=== PATIENT | male | born 1985 | race Caucasian/White ===

== ENCOUNTER → 2018-09-11 | Outpatient (CLI) | payer OTHER, SELFPAY ==
[2018-09-11 08:36] LABS: Absolute Lymphocyte Count 1.17 X10^3/uL (0.83-4.51); Absolute Neutrophil Count 4.1 X10^3/uL (2.0-7.7); Basophil# 0.01 X10^3/uL; Basophil% 0.2 % (0-1); Eosinophil# 0.04 X10^3/uL; Eosinophils% 0.6 % (0-5); Hemoglobin 14.9 g/dL (13.0-16.5); Lymphocyte # 1.17 X10^3/ul (4.0); Lymphocyte % 18.1 % (19-41); Mean Corp Hgb Conc 36.3 g/dL (32-36); Mean Corpuscular Hgb 31.3 pg (27.0-32.0); Mean Corpuscular Volume 86.1 fL (80-94); Mean Platelet Vol. 10.8 fl (6.2-12.0); Monocyte# 1.19 X10^3/uL; Monocyte% 18.4 % (0-10); NRBC Flagged by Analyzer 0 % (0-5); Neutrophil # 4.05 X10^3/uL (2.7-7.7); Neutrophil % 62.4 % (47-70); Platelet Count 122 K/mm3 (150-450); RBC Distribution Width CV 12.1 % (11.6-14.6); RBC Distribution Width SD 38.5 fl (35.1-43.9); Red Blood Count 4.76 M/mm3 (4.6-6.2); White Blood Count 6.5 K/mm3 (4.4-11.0)
[2018-09-15 10:05] LABS: Immunoglobulin E 98 IU/mL (6-495)
[2018-09-15 12:07] LABS: Alternaria tenuis <0.10 kU/L (Class 0); Ash, White 0.56 kU/L (Class II); Aspergillus fumigatus <0.10 kU/L (Class 0); Bermuda Grass 0.38 kU/L (Class I); Birch 0.31 kU/L (Class 0/I); Black Walnut 0.74 kU/L (Class II); Cat Hair / Dander,Stand 1.41 kU/L (Class III); Cladosporium herbarum <0.10 kU/L (Class 0); Cockroach, American 2.74 kU/L (Class III); Cottonwood 0.24 kU/L (Class 0/I); D farinae Mite 2.76 kU/L (Class III); D pteronyssinus 3.06 kU/L (Class III); Dog Epithelia 0.74 kU/L (Class II); Elm, American White 0.24 kU/L (Class 0/I); Immunoglobulin E 121 IU/mL (6-495); Maple/Box Elder 1.78 kU/L (Class III); Mulberry, White <0.10 kU/L (Class 0); Oak, White 0.41 kU/L (Class I); Penicillium Notatum <0.10 kU/L (Class 0); Pigweed, Rough 0.21 kU/L (Class 0/I); Ragweed, Short/Common 2.19 kU/L (Class III); Russian Thistle 0.11 kU/L (Class 0/I); Sycamore, American 0.24 kU/L (Class 0/I); Timothy Grass 0.24 kU/L (Class 0/I)
[2018-09-16 07:41] LABS: Mouse Urine <0.10 kU/L (Class 0)
== END | disposition home or self-care (01) ==
PROVIDERS: Family Provider Family Medicine; PCP Family Medicine; Referring Provider Internal Medicine Critical Care Medicine; Visit Provider Internal Medicine Critical Care Medicine
DX: J30.9 Allergic rhinitis, unspecified (principal); R06.02 Shortness of breath
CPT/HCPCS: 36415; 82785; 85025; 86003

== ENCOUNTER → 2018-10-01 | Outpatient (CLI) | payer OTHER, SELFPAY ==
--- NOTE | 2018-10-01 12:20 | PFT ---
INTRODUCTION: The patient is a 33-year-old male that presents for pulmonary function studies secondary to a diagnosis of shortness of breath. Respiratory therapy reports good patient effort. Bronchodilators were used during testing. INTERPRETATION: Forced expiration spirometry demonstrates no evidence of a large airways obstructive ventilatory defect. There was no significant response to aerosolized bronchodilators. Spirograms plateau normally. Body plethysmography was performed and reveals lung volumes to be within normal limits. Diffusing capacity by single breath CO is within normal limits. IMPRESSION: Normal pulmonary function studies.
== END | disposition home or self-care (01) ==
LOC: PSN 07:56
PROVIDERS: Family Provider Family Medicine; PCP Family Medicine; Referring Provider Internal Medicine Critical Care Medicine; Visit Provider Internal Medicine Critical Care Medicine
DX: R06.02 Shortness of breath (principal)
CPT/HCPCS: 94060; 94726; 94729

== ENCOUNTER → 2018-10-30 | Outpatient (CLI) | payer OTHER, SELFPAY ==
[2018-10-15 11:12] VITALS: BMI 25.7
--- NOTE | 2018-10-30 17:33 | BRONCHALL ---
Bronchoprovocation Challenge - Bronchoprovocation Challenge Bronchoprovocation Challenge: INTRODUCTION: The patient is a 33-year-old male that presents for a methacholine challenge secondary to a diagnosis of shortness of breath. Respiratory therapy reports good patient effort and reproducible results. INTERPRETATION: Initial spirometry did not show any large airways obstructive ventilatory defect with preserved airflow throughout. The patient was then given progressively increasing doses of methacholine in a standardized fashion. At the highest level, the patient did have a 32% decrease in FEV1, indicating a positive test. The patient's PD 20 FEV1 was noted to be 1.85. The patient did have partial postbronchodilator recovery. IMPRESSION: Positive methacholine challenge in a pattern consistent with mild bronchial hyperresponsiveness.
== END | disposition home or self-care (01) ==
LOC: PSN 06:56
PROVIDERS: Family Provider Family Medicine; PCP Family Medicine; Referring Provider Internal Medicine Critical Care Medicine; Visit Provider Internal Medicine Critical Care Medicine
DX: R06.02 Shortness of breath (principal)
CPT/HCPCS: 95070; J3490; J7674

== ENCOUNTER 2021-03-24 12:51 | Outpatient (CLI) | payer OTHER, SELFPAY ==
[2021-03-24 13:15] VITALS: BP 132/77; PULSE 58; RESP 16; TEMP 36.7; O2SAT 100; BMI 25.8
--- NOTE | 2021-03-24 13:15 | RAD_ITS ---
PROCEDURE: Fluoroscopic guided Lumbar Puncture. DATE: 03/24/2021. CLINICAL INDICATION: Benign intracranial hypertension. PHYSICIAN: Jovanny Washburn M.D. MEDICATIONS: 1% lidocaine administered subcutaneously for local anesthesia. ACCESS SITE: Lower posterior back. NEEDLE: 22-gauge spinal needle. SPECIMEN: Approximately 19 mL clear]CSF fluid. FLUOROSCOPY TIME (if supplied): (0:20) minutes/seconds. No images were obtained. COMPLICATIONS: None immediate. The risks, benefits, and alternatives to the procedure were explained to the patient. The specific risks of bleeding, infection, and neurovascular injury were detailed and accepted. Witnessed informed consent was obtained. The patient was placed on the fluoroscopic table in the prone position. The level for needle entry was determined and marked. The overlying skin was cleaned and prepped in the usual sterile fashion. 2% lidocaine was administered subcutaneously for local anesthesia. Under fluoroscopic guidance a 22-gauge spinal needle was advanced. The thecal sac was entered at the L3- L4 vertebral level. The inner stylet was removed. The opening pressure was 4 mm. The closing pressure was 4 mm. There was spontaneous flow of clear CSF fluid. The patient was placed in a reversed Trendelenburg position. Approximately 19 mL of cerebrospinal fluid was collected using gravity. The specimen was collected and submitted to the laboratory for further evaluation. The needle was withdrawn,. Hemostasis was achieved and a sterile dressing placed. The patient tolerated the procedure well without any immediate complications. The patient was placed supine with head elevated and returned to the floor in stable condition. RAD/Dx Lumbar Puncture w/IMG Guide IMPRESSION: Successful fluoroscopic-guided lumbar puncture. Electronically Signed: Jovanny Washburn MD at 14:12 EST ,
[2021-03-24] MEDS: Lidocaine 2% (5ml sdv) 5 ML VIAL.MPF INFILT (13:30)
--- NOTE | 2021-03-24 13:59 | CYSPIN_PTH ---
PATIENT: RENETTA AGGARWAL LOC: [facility] U#:[id number] AGE/SX: 35/M ROOM: RE03/24/[address]: Dr. Keny Ayala MD : 1985 BED: DIS: 03/24/2021 SPEC #: [id number] RECD: 03/25/21 10:25 STATUS: DOUG LEAHY #: [id number] JW: 03/24/21 13:[address]: Keny Ayala DEPT: CYTOLOGY RECD BY: Mary Frances ENTERED: 03/25/21 10:26 SP TYPE: CYSPIN FL OT DR: STACEY Landeros Tissues: Cerebrospinal Fluid Procedures: Pap Stain (control) Special Stain Group II Cytospin Fluid HEADER OPERATION: Lumbar puncture PRE-OP DIAGNOSIS: Benign intracranial hypertension TISSUE SUBMITTED: Cerebrospinal fluid DIAGNOSIS CYTOLOGY Cerebrospinal fluid (cytospin): Paucicellular specimen, negative for malignant cells. SJ:duane 03/25/2021 CYTOLOGY STUDY Slides are reviewed. CYTOLOGY GROSS Received is 2 ml of clear pink-tinged fluid labeled with the patient's name and and designated per the requisition as CSF. Submitted for cytology preparation. / duane 03/25/2021 TC:4 CPT: 49110
[2021-03-24 14:13] LABS: Cytology, Body Fluid / CSF SEE PATHOLOGY REPORT
[2021-03-24 14:33] LABS: Body Fluid Mononuclear WBC # 0.004 10^3/uL; Total Cell Count CSF 0.004 10^3/uL; White Count, CSF 0.004 10^3/uL (0.000-0.005)
[2021-03-24 14:46] VITALS: BP 123/66; PULSE 52; RESP 14; O2SAT 100
[2021-03-24 15:13] LABS: Glucose Spinal Fluid 53 mg/dL (40-75)
[2021-03-24 15:26] LABS: Appearance CSF (character) CLEAR (Clear); Auto B Fluid Analyzer BKGD Ct COUNTS W/IN LIMITS (W/IN LIMITS); CSF Color COLORLESS (Colorless); RBC Count, Spinal Fluid 0 /mm-3 (None seen); Tested Tube # 4
[2021-03-24 15:27] LABS: Body Fluid QC Type(s) BF1Q,BF2Q
[2021-03-25 13:11] LABS: Pathologist Review Reviewed
[2021-03-29 17:07] LABS: CSF Albumin 24 mg/dL (10-45); CSF IgG 4.3 mg/dL (0.0-10.3); CSF IgG Index 0.9 (0.0-0.7); IgG Serum 990 mg/dL (603-1613); IgG Synthesis Rate, CSF 6.7 mg/day (-9.9 TO +3.3); IgG/Alb Ratio, CSF 0.18 (0.00-0.25); Serum Albumin 4.8 g/dL (4.0-5.0)
[2021-03-29 18:02] LABS: CSF:Serum Albumin Index 5 (0-8); VDRL Cerebrospinal Fluid Non Reactive (Non Rea:<1:1)
== END 2021-03-24 23:59 | disposition home or self-care (01) ==
PROVIDERS: PCP Physician Assistant; Referring Provider Psychiatry & Neurology Neurology; Visit Provider Psychiatry & Neurology Neurology
DX: G35 Multiple sclerosis (principal); G93.2 Benign intracranial hypertension
CPT/HCPCS: 36415; 62328; 82040; 82042; 82784; 82945; 84157; 86592; 87070; 87205; 88108; 88313; 89050; 89051

== ENCOUNTER 2021-03-26 14:05 | Emergency (ER) | payer OTHER, SELFPAY ==
[2021-03-26 14:07] VITALS: BP 124/97; PULSE 67; RESP 15; TEMP 36.4; O2SAT 10; BMI 26.2
--- NOTE | 2021-03-26 15:36 | EX.ED.VIS.HA ---
HPI History of Present Illness Chief Complaint: Headache Narrative Narrative: 35-year-old male presenting with post LP headache. He states he had a LP done on Monday. This is because he had high intracranial pressures and he is not sure how much fluid they took out of with his lumbar puncture but states he had a headache in the front and the back of his head when he stands since then. He states when he lays down he is fine. He states he was told to come to the ER because radiology did not have anybody available to do a blood patch. Patient has no other complaints. [facility] Medical History Allergic rhinitis Difficulty breathing Frequent headaches Hypertrophy of nasal turbinates Home Medications multivitamin,[id number] 1 tab PO DAILY 09/10/18 [History Last Taken Unknown] ibuprofen 200 - 800 mg PO DAILY PRN 03/24/21 [History Last Taken 03/23/21] levocetirizine [Xyzal] 5 mg PO DAILY 03/24/21 [History Last Taken Unknown] Allergy/AdvReac Type Severity Reaction Status Date / Time No Known Allergies Allergy Verified 03/26/21 14:07 Family History Uncle Cancer Brain tumor Other Thyroid disorder Social History Smoking Status: Never smoker Electronic Cigarette Use: not used second hand exposure: No alcohol intake: current alcohol intake frequency: 0-2 drinks per day Alcohol type: hard liquor substance use type: does not use ROS ROS ED Constitutional Constitutional ED: Denies chills or fever(s) Eyes Eyes: Denies blurry vision or diplopia ENT ENT ED: Denies rhinorrhea or sore throat Cardiovascular Cardiovascular: Denies chest pain or palpitations Respiratory/Chest Respiratory/Chest: Denies cough, dyspnea or sputum Gastrointestinal Gastrointestinal: Denies abdominal pain or nausea Genitourinary Genitourinary ED: Denies dysuria or hematuria Musculoskeletal Musculoskeletal: Denies arthralgias or myalgias Integumentary Denies Abrasions or rash Neurologic Neurologic: Reports headache(s); Denies paresthesias or weakness Psychiatric Psychiatric: Denies anxiety or depression EXAM Physical Exam Const Vital Signs: 02/18/22 14:07 Temperature 97.6 F L Temperature Source Temporal Pulse Rate 67 Respiratory Rate 15 Blood Pressure 124/97 H Blood Pressure Mean 106 Pulse Ox 10 Oxygen Delivery Method Room Air Positive well nourished General Appearance ED: NAD; Negative for pallor HEENT Reports normocephalic atraumatic Eyes PERRL and EOMs intact bilaterally Resp normal respiratory effort and clear to auscultation bilaterally Cardio regular rate and regular rhythm Neuro oriented x3, CN's II-XII intact bilaterally and no sensory deficits noted Sensorium / Orientation: awake and alert Speech: speech normal Motor Exam: strength 5/5 throughout Psych mental status grossly normal Skin General Skin Exam: Negative for jaundice or pallor Rashes: no rashes MDM MDM MDM Narrative Medical decision making narrative: Patient presenting with post LP headache. He states he was told to come to the ER to have a blood patch. I spoke with Dr. Mcleod from anesthesiology and he recommended just discharging the patient having come down to the PACU to have this performed. This was discussed with the patient and he is amenable to this. Patient discharged stable condition. Impression: 1. Spinal headache Discharge Plan Triage Chief Complaint: Headache ED Provider: Ezra Whalen Dx/Rx/DC Orders Instructions: ED Headache After Spinal Tap ... Prescriptions: No Action Complete Multivitamin Tablet 1 tab PO DAILY RF: 0 ibuprofen 800 mg Tablet 200 - 800 mg PO DAILY PRN (Reason: Pain) RF: 0 levocetirizine [Xyzal] 5 mg Tablet 5 mg PO DAILY RF: 0 Primary Care Provider: Katherine Wolf Referrals: Katherine Wolf PA [Primary Care Provider] - Disposition Disposition: Home, Self Care
[2021-03-26 15:55] VITALS: RESP 16
== END 2021-03-26 15:35 | disposition home or self-care (01) ==
PROVIDERS: Emergency Provider Student in an Organized Health Care Education/Training Program; PCP Physician Assistant; Visit Provider Student in an Organized Health Care Education/Training Program
DX: G97.1 Other reaction to spinal and lumbar puncture (principal)
CPT/HCPCS: 99282

== ENCOUNTER 2021-04-08 13:19 | Outpatient (CLI) | payer OTHER, SELFPAY ==
[2021-04-08 13:24] VITALS: BP 124/70; PULSE 52; RESP 16; O2SAT 99
[2021-04-08] MEDS: 0.9% NaCl Peripheral Flush Adult/Peds IV (13:30)
[2021-04-08] MEDS: 0.9% NaCl IVPB Med Flush (250 mL) 15 ML IV (13:34)
[2021-04-08 15:20] VITALS: BP 121/71; PULSE 55; RESP 16; O2SAT 99
== END 2021-04-08 23:59 | disposition home or self-care (01) ==
LOC: MEDOUTP 13:20
PROVIDERS: PCP Physician Assistant; Referring Provider Psychiatry & Neurology Neurology; Visit Provider Psychiatry & Neurology Neurology
DX: H46.9 Unspecified optic neuritis (principal)
CPT/HCPCS: 96365; 96366; J7050; A4216; J2930

== ENCOUNTER 2021-04-09 13:18 | Outpatient (CLI) | payer OTHER, SELFPAY ==
[2021-04-09 13:33] VITALS: BP 121/68; PULSE 57; RESP 16; TEMP 35.9; O2SAT 100
[2021-04-09] MEDS: 0.9% NaCl Peripheral Flush Adult/Peds IV (13:36)
[2021-04-09] MEDS: 0.9% NaCl IVPB Med Flush (250 mL) 15 ML IV (13:38)
[2021-04-09 15:15] VITALS: BP 125/75; PULSE 78
== END 2021-04-09 23:59 | disposition home or self-care (01) ==
LOC: MEDOUTP 13:18
PROVIDERS: PCP Physician Assistant; Referring Provider Psychiatry & Neurology Neurology; Visit Provider Psychiatry & Neurology Neurology
DX: H46.9 Unspecified optic neuritis (principal)
CPT/HCPCS: 96365; J7050; A4216; J2930

== ENCOUNTER 2021-04-10 12:43 | Outpatient (CLI) | payer OTHER, SELFPAY ==
[2021-04-10 12:54] VITALS: BP 136/73; PULSE 69; RESP 16; TEMP 36.7; O2SAT 100
[2021-04-10 12:55] VITALS: BMI 25.8
[2021-04-10] MEDS: 0.9% NaCl Peripheral Flush Adult/Peds IV (13:10)
[2021-04-10] MEDS: 0.9% NaCl IVPB Med Flush (250 mL) 15 ML IV (13:11)
[2021-04-10 14:45] VITALS: BP 120/70; PULSE 58
== END 2021-04-10 23:59 | disposition home or self-care (01) ==
LOC: MEDOUTP 12:43 → MS3 12:44
PROVIDERS: PCP Physician Assistant; Referring Provider Psychiatry & Neurology Neurology; Visit Provider Psychiatry & Neurology Neurology
DX: H46.9 Unspecified optic neuritis (principal)
CPT/HCPCS: 96365; 96366; J7050; A4216; J2930

== ENCOUNTER 2021-05-13 06:27 | Outpatient (CLI) | payer OTHER, SELFPAY ==
--- NOTE | 2021-05-13 06:28 | MRI_ITS ---
STUDY: MRI ORBITS WITH AND WITHOUT CONTRAST REASON FOR EXAM: Male, 35 years old. Optic neuritis TECHNIQUE: Standardized fat and water weighted pulse sequences were obtained in all 3 orthogonal planes, pre-and post contrast administration. 16 ml IV Dotarem was administered for the contrast portion of the examination. COMPARISON: None. FINDINGS: Normal bilateral globes. Suspicious T2 FLAIR hyperintensity of the right optic nerve (series 7, images 10, images 16-17). There is suspicious minimal contrast enhancement around the right optic nerve (series 14, image 17). Normal left optic nerve. Normal bilateral intraconal and extraconal spaces. Normal bilateral extraocular muscles. Normal optic chiasm and post-chiasmatic tracts. Normal sella turcica, pituitary gland, infundibular stalk, and hypothalamus. Normal bilateral cavernous sinuses. Normal tectal plate and pineal gland. Normal flow voids within the major intracranial circulation suggesting patency by spin echo criteria. Normal size of the ventricles and extra-axial spaces for the patient''s age. Normal white matter tracts of the supratentorial brain. Normal bilateral basal ganglia. Normal thalami. There is no extra-axial fluid accumulation. Normal midbrain, evans and medulla. Normal cerebellum. Normal basal cisterns. Minimal mucosal edema in the maxillary sinuses, right anterior ethmoid sinus and sphenoid sinuses. OPINION: 1. Suspicious T2 FLAIR hyperintensity in the right optic nerve (series 7, image 10; series 10, images 16-17) with suspicious minimal contrast enhancement of the right optic nerve sheath (series 14, image 17). This is suspicious for right optic neuritis. Advise clinical correlation. 2. Normal MRI of the brain without suspicious MS plaques or enhancing lesions intraaxially and extra-axially. Electronically Signed: Schuyler Colindres MD at 10:14 EDT , MRI/Brain W/WO Contrast
== END 2021-05-13 23:59 | disposition home or self-care (01) ==
PROVIDERS: PCP Physician Assistant; Referring Provider Psychiatry & Neurology Neurology; Visit Provider Psychiatry & Neurology Neurology
DX: H46.9 Unspecified optic neuritis (principal)
CPT/HCPCS: 70553; A9575

== ENCOUNTER 2021-05-24 16:11 | Outpatient (CLI) | payer OTHER, SELFPAY ==
[2021-05-24 17:38] LABS: Absolute Lymphocyte Count 1.67 X10^3/uL (0.83-4.51); Basophil# 0.03 X10^3/uL; Basophil% 0.4 % (0-1); Eosinophil# 0.15 X10^3/uL; Hematocrit 43.4 % (40-54); Hemoglobin 15.7 g/dL (13.0-16.5); Lymphocyte # 1.67 X10^3/ul (0.83-4.51); Lymphocyte % 22.1 % (19-41); Mean Corp Hgb Conc 36.2 g/dL (32-36); Mean Corpuscular Hgb 30.5 pg (27.0-32.0); Mean Corpuscular Volume 84.3 fL (80-94); Mean Platelet Vol. 11.3 fl (6.2-12.0); Monocyte# 0.66 X10^3/uL; Monocyte% 8.8 % (0-10); NRBC Flagged by Analyzer 0 % (0-5); Neutrophil # 4.99 X10^3/uL (2.7-7.7); Neutrophil % 66.2 % (47-70); Platelet Count 174 K/mm3 (150-450); RBC Distribution Width CV 12.1 % (11.6-14.6); Red Blood Count 5.15 M/mm3 (4.6-6.2); White Blood Count 7.5 K/mm3 (4.4-11.0)
[2021-05-24 18:04] LABS: ALB/GLOB Ratio 1.4 RATIO (0.9-2.4); AST(SGOT) 27 U/L (15-37); Alanine Aminotransfer ALT/SGPT 32 U/L (16-61); Albumin, Serum 4.5 g/dL (3.2-5.0); Alkaline Phosphatase 56 U/L (45-117); Anion Gap 7 (5-15); BUN 18 mg/dL (7-18); BUN/Creat Ratio 22.1 RATIO (10-20); Calcium,Total 9.3 mg/dL (8.5-10.1); Chloride 101 mmol/L (98-107); Creatinine, Serum 0.82 mg/dL (0.70-1.30); EST Glomerular Filtration Rate 114 mL/min (>60); Est Glom Filt Rate - Afr Amer 138 mL/min (>60); Globulin 3.3 g/dL (2.2-4.2); Glucose 100 mg/dL (74-106); Potassium 3.5 mmol/L (3.5-5.1); Protein, Total 7.8 g/dL (6.4-8.2); Sodium Level 137 mmol/L (136-145)
[2021-05-24 18:25] LABS: HIV - WCH Non-Reactive (Nonreactive)
[2021-05-29 08:09] LABS: HEPATITIS B SURFACE AG Negative (Negative); Hepatitis A IgM Antibody Negative (Negative); Hepatitis B Core AB IgM Negative (Negative); QNTFERON TB Mitogen Value > 10.00 IU/mL (.); QNTFERON TB Nil Value 0.12 IU/mL (.); QNTFERON TB1+ Ag Value 0.07 IU/mL (.); QNTFERON TB2+ Ag Value 0.07 IU/mL (.)
[2021-05-29 11:24] LABS: Hep C Antibodies <0.1 s/co ratio (0.0-0.9); QNTIFERON TB Positive Criteria Negative (Negative); V-Zoster IgG (Immunity) 2261 index (Immune >165)
== END 2021-05-24 23:59 | disposition home or self-care (01) ==
PROVIDERS: PCP Physician Assistant; Referring Provider Psychiatry & Neurology Neurology; Visit Provider Psychiatry & Neurology Neurology
DX: G37.9 Demyelinating disease of central nervous system, unspecified (principal); H46.9 Unspecified optic neuritis
CPT/HCPCS: 36415; 80053; 80074; 85025; 86480; 86703; 86787; 87798

== ENCOUNTER → 2021-11-09 | Outpatient (CLI) | payer OTHER, SELFPAY ==
--- NOTE | 2021-11-09 17:47 | MRI_ITS ---
STUDY: MRI BRAIN WITH AND WITHOUT CONTRAST REASON FOR EXAM: Male, 36 years old. Follow-up for hx of optic neuritis/CIS TECHNIQUE: Standardized multiplanar fat and water weighted pulse sequences were obtained. IV 17ml Clariscan was administered for the contrast portion of the examination. COMPARISON: None. FINDINGS: Normal size of the ventricles and extra-axial spaces for the patient''s age. Normal white matter tracts of the supratentorial brain. Normal bilateral basal ganglia. Normal thalami. There is no extra-axial fluid accumulation. Normal flow voids within the major intracranial circulation suggesting patency by spin echo criteria. Normal venous enhancement. There is no enhancing intra-axial or extra-axial abnormality. Normal sella turcica, pituitary gland, infundibular stalk, optic chiasm and hypothalamus. Normal tectal plate and pineal gland. Normal midbrain, evans and medulla. Normal cerebellum. Normal basal cisterns. Normal bilateral temporal bones. Normal bilateral internal auditory canals. There is increased signal intensity seen within the retrobulbar segment of the optic nerve on T2 without definitive evidence for post contrast-enhancement consistent with nonspecific optic neuritis Normal visualized paranasal sinuses. Normal calvarium and skull base. Normal visualized soft tissue structures. Normal visualized upper cervical spine. MRI/Brain W/WO Contrast IMPRESSION: Findings consistent with nonspecific right sided optic neuritis without significant change since prior exam Electronically Signed: David Gusman MD at 22:33 EDT ,
== END | disposition home or self-care (01) ==
LOC: MRI 17:47
PROVIDERS: PCP Physician Assistant; Visit Provider Psychiatry & Neurology Neurology
DX: H46.9 Unspecified optic neuritis (principal); G37.9 Demyelinating disease of central nervous system, unspecified; R51.9 Headache, unspecified
CPT/HCPCS: 70553; A9575

== ENCOUNTER → 2023-02-03 | Outpatient (CLI) | payer OTHER, SELFPAY ==
--- OUTSIDE RECORDS SUMMARY | 2023-02-03 08:52 | XMS RPT_ITS | CCD ---
Author Name Unknown Address [address] [place] [address] Organization [facility] Care Team Providers Care Housekeeper Manager Name Role Phone MICHELET DOWELL Consulting Unavailable JR GAMALIEL CROSS Admitting Unavailable JR GAMALIEL CROSS Primary Care Unavailable JR GAMALIEL CROSS Attending Unavailable PROVIDER, UNKNOWN Consulting Unavailable ALYSE PRADHAN Admitting Unavailable ALYSE PRADHAN Primary Care Unavailable ALYSE PRADHAN Attending Unavailable MICHELET DOWELL Consulting Unavailable PROVIDER, UNKNOWN Consulting Unavailable Allergies Allergy Classification Reported Allergen(s) Allergy Type Date of Onset Reaction(s) Facility (1 source) Sulfonamides (Antibiotic) Drug allergy (disorder) [facility] Repository Results Test Name Value Interpretation Reference Range Facil ity Encounters Encounter Date Encounter Type Care Provider Facility Start: 01-09-2023 End: 01-09-2023 ambulatory ALYSE PRADHAN [facility] Start: 11-01-2022 ambulatory MICHELET DOWELL [facility] Payers Date Payer Category Payer Unknown [id number] 1985 Unknown [id number] Unknown [id number] Summary Purpose Family History No Family History Records FoundNo Family History Records Found Advance Directives No Advanced Directives Records FoundNo Advanced Directives Records Found Additional Source Comments (unrecognized sect ion and content) No Status Records FoundNo Status Records Found INFORMATION SOURCE (unrecogn ized section and content) DATE CREATED AUTHOR AUTHOR'S ORGANIZ ATION 01/17/2023 [facility] FOR RECORDS PERTAINING TO PATIENTS WHO ARE OR HAVE BEEN ENROLLED IN A CHEMICAL DEPENDENCY/SUBSTANCEABUSE PROGRAM, SOME INFORMATION MAY BE OMITTED. This clinical summary was aggregated from multiple sources. Caution should be exercised in using it in the provision of clinical care. This summary normalizes information from multiple sources, and as a consequence, information in this document may materially change the coding, format and clinical context of patient data. In addition, data may be omitted in some cases. CLINICAL DECISIONS SHOULD BE BASED ON THE PRIMARY CLINICAL RECORDS. [facility] [employer] [facility]. provides no warranty or guarantee of the accuracy or completeness of information in this document.
== END | disposition home or self-care (01) ==
LOC: PSN 08:17
PROVIDERS: PCP Physician Assistant; Referring Provider Psychiatry & Neurology Sleep Medicine; Visit Provider Psychiatry & Neurology Sleep Medicine
DX: M62.81 Muscle weakness (generalized) (principal)
CPT/HCPCS: 93005